=== PATIENT | male | born 1955 | race Caucasian/White ===

== ENCOUNTER 2017-09-17 13:24 | Emergency (ER) | payer BC ==
[2017-09-17] MEDS ORDERED: ISOVUE-370 76%-LOCM 1 ML ONE (13:58)
[2017-09-17 14:04] LABS: Hemoglobin 10.5 g/dL (14.0-18.0); Mean Corpuscular Hemoglobin 29.2 pg (27.0-31.0); Mean Corpuscular Volume 85.7 fl (80.0-94.0); Mean Platelet Volume 9.7 fL (7.4-10.4); Platelet Count 187 thou/uL (130-400); RBC Distribution Width 18.4 % (11.5-14.5)
[2017-09-17 14:15] LABS: ALT (SGPT) 35 U/L (8-55); AST (SGOT) 33 U/L (5-34); Albumin 4.6 g/dL (3.5-5.0); Alkaline Phosphatase 130 U/L (40-150); Anion Gap 12 mmol/L (10-20); BUN (Urea Nitrogen) 16 mg/dL (8.4-25.7); Bilirubin, Total 0.9 mg/dL (0.2-1.2); CK (CPK) 52 U/L (30-200); Calc. Creatinine Clearance 0 mL/min (70-130); Calcium 9.6 mg/dL (7.8-10.44); Carbon Dioxide 26 mmol/L (22-29); Chloride 106 mmol/L (98-107); Estimated GFR-MDRD 66; Globulin 2.6 g/dL (2.4-3.5); Glucose 120 mg/dL (70-105); Lipase 32 U/L (8-78); Protein, Total 7.2 g/dL (6.0-8.3); Sodium 140 mmol/L (136-145)
[2017-09-17 14:22] LABS: CKMB 1.2 ng/mL (0-6.6); Troponin I Less than 0.010 ng/mL (< 0.028)
[2017-09-17 14:30] LABS: Anisocytosis MODERATE=16-30 cells (100X) (0-5/hpf); Band 25 % (5-11); Elliptocytes SLIGHT = 2-5 cells (100X) (0-1/hpf); Large Platelets SLIGHT; Lymphocytes 21 % (21-51); MDiff Complete? YES; Metamyelocyte 8 % (0-0); Monocytes 6 % (0-10); Myelocyte 6 % (0-0); Neutrophil 31 % (42-75); Nucleated RBC 5 % (0); Ovalocytes SLIGHT = 2-5 cells (100X) (0-1/hpf); PLT Morphology Comment Appears Adequate; Poikilocytosis SLIGHT = 6-15 cells (100X) (0-5/hpf); Polychromasia MODERATE = 3-4 cells (100X) (0-2/hpf); Schistocytes SLIGHT = 2-5 cells (100X) (0-1/hpf); Tear Drops SLIGHT = 2-5 cells (100X) (0-1/hpf); White Blood Cell (WBC) Count 4.5 thou/uL (4.8-10.8)
--- NOTE | 2017-09-17 15:16 | CT ---
CT ANGIOGRAM OF THE CHEST: HISTORY: Substernal pain and pain upon deep inspiration. COMPARISON: None. TECHNIQUE: CT angiogram of the chest was performed in the axial plane. Three-dimensional reformatted images are submitted for interpretation. FINDINGS: No mediastinal mass, lymphadenopathy, or hematoma. Heart size is within normal limits. No pericardi al effusion. Thoracic aorta and upper abdominal aorta have a normal caliber. No periaortic fat stra nding. There is marked splenomegaly, with the spleen measuring 21.6 cm. Splenic varices are identif ied. No significant sclerotic change to the liver. The liver also enlarged, measuring 23 cm. Trachea and central bronchi are patent. No suspicious masses or consolidation in the lung parenchyma . No significant pleural fluid or pneumothorax. Adequate contrast opacification of the pulmonary ar terial system to the level of the segmental arteries. No filling defect to suggest thromboembolism. Heterogeneous attenuation of the osseous structures. Correlate for a metabolic process. IMPRESSION: 1. No evidence of pulmonary artery embolism to the level of the segmental arteries. 2. Hepatosplenomegaly. 3. Abnormal attenuation of the osseous structures. Correlate for metabolic process. 4. Splenic varices are noted. POS: [facility]
--- NOTE | 2017-09-17 15:48 | RAD ---
PORTABLE CHEST: Date: 09/17/17 HISTORY: Chest pain for 30 minutes. COMPARISON: 12/27/12 study. FINDINGS: Heart size is within normal limits. Mediastinal structures appear unremarkable. Lungs are clear of an y infiltrates. There is mixed sclerosis and lucency to the shoulder region of uncertain significance. IMPRESSION: 1. No active intrathoracic disease. 2. Mixed areas of sclerosis and lucency seen within the bones. This is particularly pronounced in th e region of the humeral heads, but appears to also involve the ribs. This is of uncertain significanc e. Clinical correlation is recommended. POS: [facility]
[2017-09-17 17:32] LABS: Troponin I Less than 0.010 ng/mL (< 0.028)
== END 2017-09-17 18:15 | disposition home or self-care (01) ==
LOC: ERS 13:24
DX: R07.2 Precordial pain (principal); D75.81 Myelofibrosis; I10 Essential (primary) hypertension; Z79.82 Long term (current) use of aspirin; Z79.899 Other long term (current) drug therapy
CPT/HCPCS: 36415; 71045; 71275; 80053; 82550; 82553; 83690; 83880; 84484; 85025; 93005